=== PATIENT | female | born 1940 | race Caucasian/White ===

== ENCOUNTER 2021-10-15 01:23 | Emergency (ER) | payer MEDICARE ==
[~2021-10-15 01:23] MED LIST: MACROBID100 MG PO
[2021-10-15 02:05] LABS: BASOPHIL 0.1 % (0-2); EOSINOPHIL 0 % (0-7); HCT 35.6 % (37.0-47.0); HGB 11.6 g/dl (12.5-16.0); LYMPHOCYTE 9.1 % (15-48); MCH 26.4 pg (25.0-31.0); MCHC 32.6 g/dL (32.0-36.0); MCV 80.9 fL (78.0-100.0); MONOCYTE 5.6 % (0-12); MPV 9.3 fL (6.0-9.5); NEUTROPHIL 84.6 % (41-80); NRBC 0; PLT 220 K/uL (150-400); RDW 13.9 % (11.5-14.0); WBC 10.1 K/uL (4.0-10.5)
[2021-10-15 02:16] LABS: ALBUMIN 3.5 g/dL (3.4-5.0); BILIRUBIN - TOTAL 0.4 mg/dL (0.2-1.0); BUN/CREAT RATIO (CALC) 35.6 RATIO; CREATININE 0.87 mg/dL (0.51-0.95); GLOBULIN (CALCULATION) 3.9 g/dL; POTASSIUM 4.7 mmol/L (3.5-5.1); TOTAL PROTEIN 7.4 g/dL (6.4-8.2)
[2021-10-15 03:05] LABS: BILIRUBIN NEGATIVE (NEGATIVE); BLOOD NEGATIVE Ery/uL (NEGATIVE); CLARITY CLEAR (CLEAR); COLOR YELLOW (YELLOW); GLUCOSE (U) 3+ mg/dL (NORMAL); LEUKOCYTES NEGATIVE Leu/uL (NEGATIVE); NITRITE NEGATIVE (NEGATIVE); PROTEIN NEGATIVE (NEGATIVE); SPECIFIC GRAVITY <=1.005 (1.001-1.030); UROBILINOGEN 0.2 mg/dL (0.2-1.0)
== END 2021-10-15 05:07 | disposition home or self-care (01) ==
LOC: FER 01:23
PROVIDERS: Internal Medicine
DX: E11.65 Type 2 diabetes mellitus with hyperglycemia (principal); H60.91 Unspecified otitis externa, right ear; D64.9 Anemia, unspecified; I10 Essential (primary) hypertension; Z79.4 Long term (current) use of insulin
CPT/HCPCS: 36415; 80053; 81003; 82009; 83690; 83880; 84145; 84484; 85025; 93005; J7030